=== PATIENT | female | born 1965 | race Two or more races ===

== ENCOUNTER 2018-11-16 09:23 | Emergency (ER) | payer MEDICAID ==
[~2018-11-16] VITALS: Ht 154.9 cm; Wt 66.0 kg
[2018-11-16 12:13] VITALS: BP 152/99
== END 2018-11-16 12:14 | disposition home or self-care (01) ==
LOC: ER 09:23
DX: S52.572A Other intraarticular fracture of lower end of left radius, initial encounter for closed fracture (principal); W19.XXXA Unspecified fall, initial encounter; Y92.9 Unspecified place or not applicable; Z88.6 Allergy status to analgesic agent
CPT/HCPCS: 29125; 73080; 73110; 81025; 99283; A4565

== ENCOUNTER 2019-02-22 07:28 | Emergency (ER) | payer MEDICAID ==
[~2019-02-22] VITALS: Ht 167.6 cm; Wt 64.0 kg
[2019-02-22] MEDS ORDERED: HYDROCODONE/ACETAMINOPHEN 10/325MG TABLET PO ONE (08:00)
[2019-02-22] MEDS ORDERED: KETOROLAC 60MG/2ML VIAL IM ONE (08:00)
[2019-02-22] MEDS ORDERED: DEXAMETHASONE 4MG/ML 1ML VIAL IM ONE (08:00)
[2019-02-22 11:30] VITALS: BP 126/81
== END 2019-02-22 12:45 | disposition home or self-care (01) ==
LOC: ER 07:28
DX: G89.29 Other chronic pain (principal); M54.9 Dorsalgia, unspecified; I10 Essential (primary) hypertension; F43.10 Post-traumatic stress disorder, unspecified; F17.200 Nicotine dependence, unspecified, uncomplicated; Z88.6 Allergy status to analgesic agent
CPT/HCPCS: 29125; 82962; 96372; 99283; J1100; J1885

== ENCOUNTER 2023-05-13 20:26 | Emergency (ER) | payer MEDICAID ==
[~2023-05-13] VITALS: Ht 154.9 cm; Wt 63.5 kg
[2023-05-13 20:38] VITALS: O2SAT 98
[2023-05-14 05:28] LABS: BASOPHILS % 0.8 % (0.0-2.0); EOSINOPHILS % 6.4 % (0.0-5.0); HEMATOCRIT. 31.3 % (36.0-48.0); HEMOGLOBIN. 9.7 g/dL (12.0-16.0); LYMPHOCYTES % 15.4 % (20.0-50.0); MEAN CORPUSCULAR HEMOGLOBIN 21.5 pg (28.0-32.0); MEAN CORPUSCULAR HGB CONC 30.9 g/dL (31.0-37.0); MEAN CORPUSCULAR VOLUME 69.3 fL (81.0-99.0); MEAN PLATELET VOLUME 7.6 fl (7.4-10.4); MONOCYTES % 9.7 % (2.0-8.0); NEUTROPHILS % 67.7 % (40.0-76.0); PLATELET 369 x1000/uL (130-400); RED BLOOD CELL COUNT 4.52 mill/uL (4.2-5.4); RED CELL DISTRIBUTION WIDTH 15.6 % (11.6-14.6); WHITE BLOOD COUNT 6.8 x1000/uL (4.5-11.0)
[2023-05-14 05:32] LABS: ADD RBC MORPHOLOGY YES; DIFFERENTIAL COMMENT 1
[2023-05-14 05:41] LABS: CALCIUM 8.8 mg/dL (8.7-10.4); CARBON DIOXIDE 24 mEq/L (21-32); CHLORIDE 107 mEq/L (98-107); CREATININE 0.6 mg/dL (0.6-1.0); GLUCOSE 130 mg/dL (70-105); POTASSIUM 2.9 mEq/L (3.5-5.1); SODIUM 139 mEq/L (136-145); UREA NITROGEN BLOOD 8 mg/dL (9-23)
[2023-05-14] MEDS: POTASSIUM CHLORIDE 20MEQ/PACKET PO NR (06:00)
[2023-05-14] MEDS ORDERED: POTA-204 MT (06:05)
[2023-05-14] MEDS ORDERED: ACET-2708 MT (06:05)
[2023-05-14] MEDS ORDERED: CEPH500C2 MT (06:05)
[2023-05-14] MEDS: HYDROCODONE/ACETAMINOPHEN 5/325MG TABLET PO ONE (06:30)
[2023-05-14 06:35] LABS: HYPOCHROMASIA 1+; MICROCYTOSIS 1+; PLATELET ESTIMATE NORMAL
[2023-05-14 09:39] VITALS: BP 124/78; PULSE 78; RESP 16; TEMP 97.9
== END 2023-05-14 09:40 | disposition home or self-care (01) ==
LOC: ER 20:26
DX: M25.572 Pain in left ankle and joints of left foot (principal); D64.9 Anemia, unspecified; E87.6 Hypokalemia; I10 Essential (primary) hypertension; Z85.9 Personal history of malignant neoplasm, unspecified; Z98.890 Other specified postprocedural states; Z20.822 Contact with and (suspected) exposure to COVID-19
CPT/HCPCS: 99284; 80048; 82962; 85025; 87804 ×2; 36415; 93971; 71046; 73610; 87426; Z7610 ×2